=== PATIENT | male | born 1970 | race Native Hawaiian/Other Pacific Islander ===

== ENCOUNTER 2020-01-08 23:18 | Emergency (ER) | payer OTHER ==
[~2020-01-08] VITALS: Ht 167.6 cm; Wt 61.2 kg
[2020-01-08 23:28] VITALS: BP 164/107
== END 2020-01-08 23:56 | disposition home or self-care (01) ==
LOC: ED 23:18
DX: T18.8XXA Foreign body in other parts of alimentary tract, initial encounter (principal); T65.891A Toxic effect of other specified substances, accidental (unintentional), initial encounter; Y92.89 Other specified places as the place of occurrence of the external cause
CPT/HCPCS: 99281